=== PATIENT | female | born 1980 | race Two or more races ===

== ENCOUNTER → 2021-02-12 | Day surgery (SDC) | payer OTHER ==
[~2021-02-12] MED LIST: COZAAR50 MG PO; FIORICET PO; PRILO PO; VITAMIN C PO
== END | disposition home or self-care (01) ==
LOC: ADM 02-08 09:00 → CIR.AMB 06:30
PROVIDERS: ATTEND Surgery
DX: D24.1 Benign neoplasm of right breast (principal); N60.01 Solitary cyst of right breast; N60.21 Fibroadenosis of right breast; N60.11 Diffuse cystic mastopathy of right breast; Z20.822 Contact with and (suspected) exposure to COVID-19